=== PATIENT | female | born 1995 ===

== ENCOUNTER 2019-10-23 15:51 | Emergency (ER) | payer OTHER ==
[~2019-10-23] VITALS: Ht 142.2 cm; Wt 68.0 kg
[2019-10-23] MEDS ORDERED: PRENATAL + DHA1 EAC1 (16:06)
== END 2019-10-23 19:03 | disposition home or self-care (01) ==
LOC: ER 15:51
DX: O23.31 Infections of other parts of urinary tract in pregnancy, first trimester (principal); Z34.01 Encounter for supervision of normal first pregnancy, first trimester

== ENCOUNTER 2019-11-04 22:24 | Emergency (ER) | payer OTHER ==
[~2019-11-04] VITALS: Ht 142.2 cm; Wt 68.0 kg
[~2019-11-04 22:24] MED LIST: PRENATAL + DHA1 EAC1
== END 2019-11-05 01:49 | disposition home or self-care (01) ==
LOC: ER 22:24
DX: O20.0 Threatened abortion (principal)